=== PATIENT | male | born 1960 | race Caucasian/White ===

== ENCOUNTER → 2019-06-04 | Outpatient (CLI) | payer OTHER | LOC: LAB.O 07:26 | PROVIDERS: ATTEND Family Medicine | DX: M10.9 Gout, unspecified (principal); E78.5 Hyperlipidemia, unspecified; M79.672 Pain in left foot; I10 Essential (primary) hypertension; R32 Unspecified urinary incontinence; G47.09 Other insomnia; Z79.899 Other long term (current) drug therapy; Z11.59 Encounter for screening for other viral diseases ==